=== PATIENT | male | born 1985 | race Caucasian/White ===

== ENCOUNTER 2022-03-09 20:30 | Emergency (ER) | payer MEDICARE, MEDICAID | END 2022-03-09 22:00 | disposition home or self-care (01) | LOC: FB.ED 20:30 | DX: S09.90XA Unspecified injury of head, initial encounter (principal); Z88.8 Allergy status to other drugs, medicaments and biological substances; Z91.040 Latex allergy status; Z79.899 Other long term (current) drug therapy; Z79.01 Long term (current) use of anticoagulants; W22.8XXA Striking against or struck by other objects, initial encounter | CPT/HCPCS: 70450; 99283 ==